=== PATIENT | male | born 1960 | race Caucasian/White ===

== ENCOUNTER 2018-05-17 11:58 | Inpatient (IN) | payer OTHER ==
[2018-05-17] MEDS ORDERED: SODIUM CHLORIDE 0.9% 1,000 ML IV STA (12:48)
[2018-05-17] MEDS ORDERED: METOCLOPRAMIDE 5 MG/ML 2 ML VIAL IVP STA (12:48)
[2018-05-17] MEDS ORDERED: diphenhydrAMINE 50 MG/ML 1 ML VIAL IVP STA (12:49)
--- NOTE | 2018-05-17 12:54 | ED ---
General Adult HPI - General Chief complaint: Headache Stated complaint: Headache Time Seen by Provider: 05/17/18 12:20 Source: patient, family, RN notes reviewed Mode of arrival: ambulatory Limitations: no limitations - History of Present Illness Initial comments: Patient is a pleasant 57-year-old male presenting to the emergency Department with chief complaint of headache. Onset of symptoms was around 3 AM. Patient woke with moderate discomfort. Patient agrees that this was not an abrupt onset. Symptoms have been waxing and waning at that time. Discomfort is moderate at this time. Discomfort is mostly in the frontal region. Patient does have associated nausea. No vomiting. No confusion. Patient does have associated tingling of both of his arms and both of his legs. No weakness. Patient does not commonly get headaches. Patient did take a Xanax without much relief. Patient has not slept much since onset. Patient states he usually does take an extra once per week. - Related Data Home Medications Medication Instructions Recorded Confirmed ALPRAZolam [Xanax] 0.25 mg PO DAILY PRN 05/17/18 05/17/18 Amlodipine Unknown Dose 1 tab PO DAILY 05/17/18 05/17/18 Aspirin EC [Ecotrin Low Dose] 81 mg PO DAILY 05/17/18 05/17/18 Multivitamins, Thera [Multivitamin 1 tab PO DAILY 05/17/18 05/17/18 (formulary)] Zolpidem Tartrate [Ambien] 10 mg PO HS 05/17/18 05/17/18 Allergies Allergy/AdvReac Type Severity Reaction Status Date / Time acetaminophen AdvReac Unknown Verified 05/17/18 13:14 [From Tylenol-Codeine #3] codeine AdvReac Unknown Verified 05/17/18 13:14 [From Tylenol-Codeine #3] Review of Systems ROS Statement: Those systems with pertinent positive or pertinent negative responses have been documented in the HPI. ROS Other: All systems not noted in ROS Statement are negative. Constitutional: Denies: fever Eyes: Denies: eye pain, vision change ENT: Denies: ear pain Respiratory: Denies: cough Cardiovascular: Denies: chest pain Endocrine: Denies: fatigue Gastrointestinal: Denies: abdominal pain Genitourinary: Denies: dysuria Musculoskeletal: Denies: back pain Skin: Denies: rash Neurological: Reports: headache. Denies: weakness, confusion Past Medical History Past Medical History: Pneumonia History of Any Multi-Drug Resistant Organisms: None Reported Past Surgical History: Orthopedic Surgery Additional Past Surgical History / Comment(s): foot Past Psychological History: No Psychological Hx Reported Smoking Status: Never smoker Past Alcohol Use History: Occasional Past Drug Use History: None Reported General Exam Limitations: no limitations General appearance: alert, in no apparent distress Head exam: Present: atraumatic, normocephalic, other (No tenderness over the temporal arteries) Eye exam: Present: normal appearance, PERRL, EOMI. Absent: nystagmus ENT exam: Present: normal oropharynx Neck exam: Present: normal inspection Respiratory exam: Present: normal lung sounds bilaterally Cardiovascular Exam: Present: regular rate, normal rhythm GI/Abdominal exam: Present: soft. Absent: tenderness Extremities exam: Present: normal inspection Neurological exam: Present: alert, CN II-XII intact. Absent: motor sensory deficit Expanded Neurological exam: Present: protecting the airway Speech: Present: fluid speech Cranial nerves: EOM's Intact: Normal, Facial Sensation: Normal Cerebellar function: Finger to Nose: Normal Sensory exam: Upper Extremity Light Touch: Normal, Lower Extremity Light Touch: Normal Motor strength exam: RUE: 5, LUE: 5, RLE: 5, LLE: 5 Eye Response: (4) open spontaneously Motor Response: (6) obeys commands Verbal Response: (5) oriented Psychiatric exam: Present: normal affect, normal mood Skin exam: Present: normal color Course Vital Signs 05/17/18 05/17/18 05/17/18 12:09 14:03 17:01 Temperature 97.8 F Pulse Rate 84 74 64 Respiratory 18 18 16 Rate Blood Pressure 170/98 152/74 124/71 O2 Sat by Pulse 97 96 98 Oximetry EKG Findings - EKG Comments: EKG Findings:: Normal sinus rhythm at 65. AL 168. QRS 160. QT 442. QTC 459. Left axis. Right bundle-branch block. LVH criteria. No acute ST change. Medical Decision Making - Medical Decision Making Patient reevaluated. Headache has improved however not resolved. Patient is receptive to further medication. and family are updated on results. Case was discussed with neural interventional list, Dr. Burnett who does recommend admission and MRI/MRA of the brain. He feels he will likely be able to follow-up with the patient pending MRI results. Case was discussed in detail with Dr. Baptiste, who will admit for Dr. Caraballo - Lab Data Result diagrams: 05/17/18 12:25 05/17/18 12:25 Lab Results 05/17/18 05/17/18 05/17/18 Range/Units 12:25 12:25 12:25 WBC 6.3 (3.8-10.6) k/uL RBC 5.05 (4.30-5.90) m/uL Hgb 15.9 (13.0-17.5) gm/dL Hct 45.9 (39.0-53.0) % MCV 90.8 (80.0-100.0) fL MCH 31.4 (25.0-35.0) pg MCHC 34.6 (31.0-37.0) g/dL RDW 13.1 (11.5-15.5) % Plt Count 219 (150-450) k/uL Neutrophils % 60 % Lymphocytes % 30 % Monocytes % 6 % Eosinophils % 2 % Basophils % 1 % Neutrophils # 3.8 (1.3-7.7) k/uL Lymphocytes # 1.9 (1.0-4.8) k/uL Monocytes # 0.4 (0-1.0) k/uL Eosinophils # 0.1 (0-0.7) k/uL Basophils # 0.0 (0-0.2) k/uL ESR 2 (0-15) mm/hr PT 9.6 (9.0-12.0) sec INR 1.0 (<1.2) APTT 24.4 (22.0-30.0) sec Sodium 140 (137-145) mmol/L Potassium 4.8 (3.5-5.1) mmol/L Chloride 104 (98-107) mmol/L Carbon Dioxide 23 (22-30) mmol/L Anion Gap 13 mmol/L BUN 16 (9-20) mg/dL Creatinine 0.71 (0.66-1.25) mg/dL Est GFR (CKD-EPI)AfAm >90 (>60 ml/min/1.73 sqM) Est GFR (CKD-EPI)NonAf >90 (>60 ml/min/1.73 sqM) Glucose 102 H (74-99) mg/dL Calcium 9.6 (8.4-10.2) mg/dL Magnesium 2.3 (1.6-2.3) mg/dL Total Bilirubin 0.6 (0.2-1.3) mg/dL AST 69 H (17-59) U/L ALT 128 H (21-72) U/L Alkaline Phosphatase 94 (38-126) U/L Total Protein 7.1 (6.3-8.2) g/dL Albumin 4.6 (3.5-5.0) g/dL - Radiology Data Radiology results: report reviewed (Computed tomography scan of the brain shows no acute process. CT angios of the brain shows distal right internal carotid artery stenosis. Also suspected venous angioma or AVM right corpus callosum. With early pill of the vena tate) Disposition Clinical Impression: Headache, Carotid stenosis, AVM (arteriovenous malformation) Disposition: ADMITTED IP TO THIS [facility] Referrals: Preeti Kimbrough MD [Primary Care Provider] - 1-2 days Decision Time: 17:17
[2018-05-17 13:01] LABS: Basophils % (A) 1 %; Eosinophils # (A) 0.1 k/uL (0-0.7); Eosinophils % (A) 2 %; HCT 45.9 % (39.0-53.0); HGB 15.9 gm/dL (13.0-17.5); Lymphocytes # (A) 1.9 k/uL (1.0-4.8); Lymphocytes % (A) 30 %; MCH 31.4 pg (25.0-35.0); MCHC 34.6 g/dL (31.0-37.0); MCV 90.8 fL (80.0-100.0); Mean Platelet Volume 7.3; Monocytes # (A) 0.4 k/uL (0-1.0); Monocytes % (A) 6 %; Neutrophils # (A) 3.8 k/uL (1.3-7.7); Neutrophils % (A) 60 %; Platelet Count 219 k/uL (150-450); RBC 5.05 m/uL (4.30-5.90); RDW 13.1 % (11.5-15.5); WBC 6.3 k/uL (3.8-10.6)
[2018-05-17 13:10] LABS: Partial Thromboplastin Time 24.4 sec (22.0-30.0); Prothrombin Time 9.6 sec (9.0-12.0)
[2018-05-17 13:12] LABS: ALT 128 U/L (21-72); AST 69 U/L (17-59); Albumin 4.6 g/dL (3.5-5.0); Alkaline Phosphatase 94 U/L (38-126); Anion Gap 13 mmol/L; Blood Urea Nitrogen 16 mg/dL (9-20); Calcium 9.6 mg/dL (8.4-10.2); Carbon Dioxide 23 mmol/L (22-30); Chloride 104 mmol/L (98-107); Glucose 102 mg/dL (74-99); Magnesium 2.3 mg/dL (1.6-2.3); Potassium 4.8 mmol/L (3.5-5.1); Sodium 140 mmol/L (137-145); Total Bilirubin 0.6 mg/dL (0.2-1.3); Total Protein 7.1 g/dL (6.3-8.2)
--- NOTE | 2018-05-17 13:51 | CT ---
EXAMINATION TYPE: CT brain wo con DATE OF EXAM: 05/17/2018 COMPARISON: NONE INDICATION: ANN DLP: 1090.4 mGycm, Automated exposure control for dose reduction was used. CONTRAST: None CT of the brain is performed utilizing 3 mm thick sections through the posterior fossa and 3 mm thick sections through the remaining calvarium. Study is performed within 24 hours of arrival to the hosp ital. No abnormal hyperdensity is present to suggest an acute intracranial hemorrhage. No mass lesion is evident. No acute infarcts are evident. Ventricles and sulci are appropriate for the patient age. Mucosal thickening is through the right maxillary sinus. Large retention cyst is likely present. Smal ler retention cysts and mucosal thickenings within the left maxillary sinus. There is mucosal thicken ing within the frontal sinuses and ethmoid air cells. The sphenoid sinuses and mastoid air cells are clear. IMPRESSIONS: 1. No acute intracranial process. 2. Mucosal thickening within paranasal sinuses above.
[2018-05-17 14:43] LABS: Erythrocyte Sedimentation Rate 2 mm/hr (0-15)
--- NOTE | 2018-05-17 15:22 | CT ---
EXAMINATION TYPE: CT angio head DATE OF EXAM: 05/17/2018 HISTORY: ANN COMPARISON: NONE CT DLP: 404.3 mGycm. Automated Exposure Control for Dose Reduction was Utilized. TECHNIQUE: CTA scan of the neck is performed with IV Contrast, patient injected with 65 mL of Isovue 370, axial images are obtained, coronal and sagittal reformatted images are reviewed. Three-D recons tructed images are created on an independent workstation and reviewed. FINDINGS: Carotid/Vascular Structures: There is a three-vessel arch. The vertebral arteries are codominant. Com mon carotid arteries bifurcate into internal and external carotid arteries. Internal carotid arteries are very redundant near the skull base. There is a focal area of stenosis on reconstructed images at the distal right internal carotid artery. No significant stenosis at the carotid bifurcations is [place]: A1 and M1 segments appear normal. A2 segments appear normal. The anterior communica ting artery is not identified. Vertebral basilar system appears normal. Posterior communicating arter ies are not identified. Middle cerebral artery branches appear normal. There appears to be early visualization of the straight sinus and vein of [place]. An arterial venous m alformation is not excluded. A venous angioma potentially could be within the region of of the corpus callosum on the sagittal plane images. IMPRESSION: 1. Distal right internal carotid artery stenosis near the redundancy at the skull base. Carotid bifur cations appear normal. 2. Suspected venous angioma or arteriovenous malformation along the right corpus callosum with early fill of the vena [place]. Consider follow-up MRA [place] for correlation.
[2018-05-17] MEDS ORDERED: MORPHINE SULFATE 2 MG/ML SYRINGE IVP STA (17:12)
[2018-05-17] MEDS ORDERED: MORPHINE SULFATE 2 MG/ML SYRINGE IV PRN (17:20)
[2018-05-17] MEDS ORDERED: LORazepam 2 MG/ML INJ IV PRN (17:20)
[2018-05-17] MEDS ORDERED: NALOXONE 0.4 MG/ML 1 ML VIAL IV PRN (17:20)
[2018-05-17] MEDS ORDERED: ALPRAZolam 0.25 MG TAB PO PRN (17:42)
[2018-05-17] MEDS ORDERED: ASPIRIN 81 MG PO STA (17:43)
--- NOTE | 2018-05-17 17:52 | P.HPIM ---
History of Present Illness H&P Date: 05/17/18 Chief Complaint: Headache and nausea The patient is a 57-year-old male with a past medical history of essential hypertension and insomnia who presents to the ER via private vehicle with his with chief complaint of frontal headache described as severe as 7 out of 10 located in the frontal area that began at approximately 2 AM and woke him from sleep this morning, the patient also reports some numbness and tingling in all extremities, he denies any focal weakness slurred speech and confusion, chest pain or shortness of breath. The patient is followed by Dr. Chappell and he reports compliance with his antihypertensive regimen. The patient reports that he's had intermittent headaches randomly over the last couple months, denies any history of migraine headaches or seizure disorder. The patient denies any recent illnesses and reports that he is otherwise healthy. In the ER and on admission he had a conference of workup including a CT of the head that was consistent with mucosal thickening within the paranasal sinuses with a likely retention cyst. CT of the neck was consistent with distal right ICA stenosis and a suspected venous angioma or AVM along the right corpus callosum. His labs are remarkable for a mild transaminitis of 69/128 ast/alt respectively. He was noted to be hypertensive the blood pressure of 170/98, Dr. Sprague contacted neuro interventionalist, Dr. Burnett who recommended admission and follow-up MRI MRA of the brain Review of Systems All other 12 point review of systems negative except for HPI Past Medical History Past Medical History: Pneumonia History of Any Multi-Drug Resistant Organisms: None Reported Past Surgical History: Orthopedic Surgery Additional Past Surgical History / Comment(s): foot Past Psychological History: No Psychological Hx Reported Smoking Status: Never smoker Past Alcohol Use History: Occasional Past Drug Use History: None Reported Medications and Allergies Home Medications Medication Instructions Recorded Confirmed Type ALPRAZolam [Xanax] 0.25 mg PO DAILY PRN 05/17/18 05/17/18 History Amlodipine Unknown Dose 1 tab PO DAILY 05/17/18 05/17/18 History Aspirin EC [Ecotrin Low Dose] 81 mg PO DAILY 05/17/18 05/17/18 History Multivitamins, Thera [Multivitamin 1 tab PO DAILY 05/17/18 05/17/18 History (formulary)] Zolpidem Tartrate [Ambien] 10 mg PO HS 05/17/18 05/17/18 History Allergies Allergy/AdvReac Type Severity Reaction Status Date / Time acetaminophen AdvReac Unknown Verified 05/17/18 13:14 [From Tylenol-Codeine #3] codeine AdvReac Unknown Verified 05/17/18 13:14 [From Tylenol-Codeine #3] Physical Exam Vitals: Vital Signs Temp Pulse Resp BP Pulse Ox 05/17/18 17:01 64 16 124/71 98 05/17/18 14:03 74 18 152/74 96 05/17/18 12:09 97.8 F 84 18 170/98 97 Intake and Output 05/17/18 05/17/18 05/17/18 06:59 14:59 22:59 Other: Weight 95.254 kg Constitutional: No acute distress, conversant, pleasant Eyes: Anicteric sclerae, moist conjunctiva, no lid-lag, PERRLA ENMT: NC/AT,Oropharynx clear, no erythema, exudates Neck:Supple, FROM, no masses, or JVD, No carotid bruits; No thyromegaly Lungs: Clear to auscultation, Clear to percussion, Normal respiratory effort, no accessory muscle use Cardiovascular: Heart regular in rate and rhythm, No murmurs, gallops, or rubs no peripheral edema Abdominal: Soft Nontender, nom distended, no guarding, no rebound or rigidity, Normoactive bowel sounds No hepatomegaly, No splenomegaly, No palpable mass No abdominal wall hernia noted Skin: Normal temperature, tone, texture, turgor, No induration No subcutaneous nodules, No rash, lesions, No ulcers Extremities:No digital cyanosis No clubbing, Pedal pulses intact and symmetrical Radial pulses intact and symmetrical Normal gait and station, No calf tenderness Psychiatric: Alert and oriented to person, place and time, Appropriate affect Intact judgement Neuro: Muscles Strength 5/5 in all 4 extremities, Sensation to light touch grossly present throughout, Cranial nerves II-XII grossly intact. No focal sensory deficits Results CBC & Chem 7: 05/17/18 12:25 05/17/18 12:25 Labs: Abnormal Lab Results - Last 24 Hours (Table) 05/17/18 Range/Units 12:25 Glucose 102 H (74-99) mg/dL AST 69 H (17-59) U/L ALT 128 H (21-72) U/L Assessment and Plan (1) Hypertensive encephalopathy Current Visit: Yes Status: Acute Code(s): I67.4 - HYPERTENSIVE ENCEPHALOPATHY SNOMED Code(s): 86159371 (2) TIA (transient ischemic attack) Current Visit: Yes Status: Acute Code(s): G45.9 - TRANSIENT CEREBRAL ISCHEMIC ATTACK, UNSPECIFIED SNOMED Code(s): 352170119 (3) AVM (arteriovenous malformation) Current Visit: Yes Status: Acute Code(s): Q27.30 - ARTERIOVENOUS MALFORMATION, SITE UNSPECIFIED SNOMED Code(s): 955627366 (4) Carotid stenosis Current Visit: Yes Status: Acute Code(s): I65.29 - OCCLUSION AND STENOSIS OF UNSPECIFIED CAROTID ARTERY SNOMED Code(s): 38872838 (5) Headache Current Visit: Yes Status: Acute Code(s): R51 - HEADACHE SNOMED Code(s): 76252440 (6) Transaminitis Current Visit: Yes Status: Acute Code(s): R74.0 - NONSPEC ELEV OF LEVELS OF TRANSAMNS & LACTIC ACID DEHYDRGNSE SNOMED Code(s): 749177340 Plan: The patient is admitted anticipated greater than 2 midnight stay with headache likely due to hypertensive encephalopathy after presenting with elevated blood pressure and possible TIA, he started on antiplatelet therapy with aspirin and reinitiated on his home hypertensive regimen with Norvasc, will plan to get echocardiogram and neurology consultation with Dr. Renner, the patient was found to have a venous angioma versus AVM and right carotid artery stenosis. On -call neuro interventionalist Dr. Burnett recommending follow-up MRI/MRA of the head. We will order right upper quadrant ultrasound and hep panel for his mild transaminitis. We'll place the patient and SCDs for DVT prophylaxis and continue to monitor his clinical course.
[2018-05-17] MEDS ORDERED: ONDANSETRON 4 MG/2 ML VIAL IVP PRN (17:55)
[2018-05-17] MEDS: SODIUM CHLORIDE 0.9% 1,000 ML IV SCH (19:29)
[2018-05-17] MEDS: ZOLPIDEM 10 MG TAB PO SCH (23:17)
[2018-05-17 23:37] VITALS: BMI 69.5
[2018-05-18 06:53] LABS: Basophils % (A) 1 %; Eosinophils # (A) 0.1 k/uL (0-0.7); Eosinophils % (A) 2 %; HCT 42.9 % (39.0-53.0); HGB 14.6 gm/dL (13.0-17.5); Lymphocytes # (A) 2.2 k/uL (1.0-4.8); Lymphocytes % (A) 35 %; MCH 32.1 pg (25.0-35.0); MCHC 34.1 g/dL (31.0-37.0); MCV 94.1 fL (80.0-100.0); Mean Platelet Volume 6.9; Monocytes # (A) 0.3 k/uL (0-1.0); Monocytes % (A) 5 %; Neutrophils # (A) 3.4 k/uL (1.3-7.7); Neutrophils % (A) 55 %; Platelet Count 180 k/uL (150-450); RBC 4.56 m/uL (4.30-5.90); RDW 14.4 % (11.5-15.5); WBC 6.2 k/uL (3.8-10.6)
[2018-05-18 07:02] LABS: ALT 107 U/L (21-72); AST 46 U/L (17-59); Albumin 3.8 g/dL (3.5-5.0); Alkaline Phosphatase 64 U/L (38-126); Anion Gap 10 mmol/L; Blood Urea Nitrogen 16 mg/dL (9-20); Calcium 9.1 mg/dL (8.4-10.2); Carbon Dioxide 24 mmol/L (22-30); Chloride 105 mmol/L (98-107); Cholesterol 159 mg/dL (<200); Glucose 100 mg/dL (74-99); HDL Cholesterol 51 mg/dL (40-60); LDL Cholesterol,Calculated 92 mg/dL (0-99); Potassium 4.6 mmol/L (3.5-5.1); Sodium 139 mmol/L (137-145); Total Bilirubin 0.4 mg/dL (0.2-1.3); Triglycerides 79 mg/dL (<150)
[2018-05-18] MEDS: amLODIPine 10 MG TAB PO SCH (08:02)
[2018-05-18] MEDS: ASPIRIN 325 MG TAB PO SCH (08:02)
--- NOTE | 2018-05-18 08:26 | US ---
EXAMINATION TYPE: US abdomen limited DATE OF EXAM: 05/18/2018 COMPARISON: NONE CLINICAL HISTORY: Transaminitis. EXAM MEASUREMENTS: Liver Length: 17.4 cm Gallbladder Wall: 0.4 cm CBD: 0.6 cm Right Kidney: 12.1 x 5.4 x 6.8 cm Pancreas: not well visualized due to midline bowel gas Liver: limited to intercostal window, visualized portions difficult to penetrate. Measures upper foote its of normal. Gallbladder: There is a wall echo shadow seen which is believed to be the gallbladder, no lumen iden tified . The wall is thickened at 0.4 cm, probable stones with shadowing. Evidence for sonographic Navarro's sign: No CBD: wnl Right Kidney: upper pole hypoechoic area measures 1.5 x 1.3 x 1.5 cm, simple cyst. IMPRESSION: 1. Cholelithiasis and gallbladder wall. Correlate for acute cholecystitis. 2. Echogenic pancreas. The distal tail is not visualized due to bowel gas. 3. Renal cyst right kidney
--- NOTE | 2018-05-18 09:02 | P.CNNES ---
History of Present Illness Consult date: 05/18/18 Reason for Consult: Patient admitted for headaches and possible venous angioma. History of Present Illness: This patient is a 57-year-old right-handed white male who was brought into the emergency room at [facility] yesterday for evaluation of headache. 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 On Friday night at about 2 AM he awoke from sleep and noted that he was having bifrontal headache pain. Patient states he was just not feeling well and had to take some over-the- counter medication to see if this would help but the headache persisted. Patient follows with his primary care physician Dr. Leidy granados for treatment of essential hypertension. Patient did not check his blood pressure at the time but did notice that he was having a throbbing headache. The symptoms continued and his recommended he go to the emergency room. He was brought into the ER yesterday for further evaluation. He was seen in the ER by Dr. Sprague. The patient continued to have headache pain and he was sent for a computed tomography scan of the brain which was completed yesterday and revealed no acute intracranial process. There was mucosal thickening within the paranasal sinuses. No evidence of acute stroke or hemorrhage was noted. Patient also underwent a CTA angiogram of the head and neck. This was completed yesterday. The results of the angiogram revealed a right internal carotid artery stenosis near the skull base. There was also evidence suggesting possibility of a venous angioma or arteriovenous malformation involving the right corpus callosum. MRA of the [place] was recommended by radiology. Patient states he does suffer from occasional headaches but does not have severe intractable migraines or recurrent headaches in the past. 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 The patient states his headache pain on Friday night average 7/10 in intensity. Today his headache is much better and states that the headache severity is now down to 2/10 intensity. While in the emergency room yesterday Dr. Sprague did contact Dr. Burnett the neuro interventionalist at [facility]. Dr. Burnett reviewed his computed tomography scan results and recommended the patient be admitted and to have a MRI MRA of the brain done. This was also conveyed to Dr. Baptiste was the admitting physician last night. Patient was given some analgesics in the ER and seems to be doing very well this morning. He is resting comfortably and as stated his headache pain is now down to 2/10. He did have evidence of hypertensive urgency in the emergency room yesterday with a blood pressure noted to be 170/98 in the ER. Pressures are doing much better today. We have recommended to the patient to undergo MRI MRA of the brain today for further evaluation. He is agreeable and we will arrange for the testing to be done this morning. The patient's CT angiogram also revealed evidence of right carotid artery stenosis. We have recommended a vascular surgery consultation for further assessment. Overall the patient seems to be doing much better today in terms of his headache symptoms. We will give further recommendations depending on the results of his MRI and MRA. If there is definite finding of AVM we would recommend a neurosurgical consultation for further assessment and treatment. The patient is resting comfortably. He is being evaluated for right upper quadrant pain and ultrasound is been scheduled. He just completed echocardiogram of the heart and we will await those results. Overall the patient is resting comfortably and appears to be in no acute distress. Headache pain symptoms are much better this morning. Neurology is now been consulted for further evaluation and recommendations. Review of Systems Constitutional: Denies chills, Denies fever Eyes: denies blurred vision, denies pain Ears, nose, mouth and throat: Denies headache, Denies sore throat Cardiovascular: Denies chest pain, Denies shortness of breath Respiratory: Denies cough Gastrointestinal: Denies abdominal pain, Denies diarrhea, Denies nausea, Denies vomiting Musculoskeletal: Denies myalgias Integumentary: Denies pruritus, Denies rash Neurological: Reports headaches, Reports paresthesias, Denies numbness, Denies weakness Psychiatric: Denies anxiety, Denies depression Endocrine: Denies fatigue, Denies weight change Past Medical History Past Medical History: Pneumonia History of Any Multi-Drug Resistant Organisms: None Reported Past Surgical History: Orthopedic Surgery Additional Past Surgical History / Comment(s): foot Past Psychological History: No Psychological Hx Reported Smoking Status: Never smoker Past Alcohol Use History: Occasional Past Drug Use History: None Reported Medications and Allergies Home Medications Medication Instructions Recorded Confirmed Type ALPRAZolam [Xanax] 0.25 mg PO DAILY PRN 05/17/18 05/17/18 History Amlodipine Unknown Dose 1 tab PO DAILY 05/17/18 05/17/18 History Aspirin EC [Ecotrin Low Dose] 81 mg PO DAILY 05/17/18 05/17/18 History Multivitamins, Thera [Multivitamin 1 tab PO DAILY 05/17/18 05/17/18 History (formulary)] Zolpidem Tartrate [Ambien] 10 mg PO HS 05/17/18 05/17/18 History Allergies Allergy/AdvReac Type Severity Reaction Status Date / Time acetaminophen AdvReac Unknown Verified 05/17/18 13:14 [From Tylenol-Codeine #3] codeine AdvReac Unknown Verified 05/17/18 13:14 [From Tylenol-Codeine #3] Physical Examination - Vital Signs Vital Signs: Vital Signs Temp Pulse Pulse Resp BP BP Pulse Ox 05/18/18 08:00 64 05/18/18 07:55 97.6 F 64 16 118/80 98 05/18/18 04:00 97.6 F 63 16 130/80 93 L 05/18/18 00:00 72 14 05/17/18 23:19 96.9 F L 72 14 119/72 96 05/17/18 22:15 98.7 F 65 14 118/71 97 05/17/18 19:27 79 16 131/68 96 05/17/18 17:01 64 16 124/71 98 05/17/18 14:03 74 18 152/74 96 05/17/18 12:09 97.8 F 84 18 170/98 97 Intake and Output 05/17/18 05/18/18 05/18/18 22:59 06:59 14:59 Other: # Voids 2 Weight 220 kg 100.2 kg - Constitutional General appearance: average body habitus, cooperative - EENT EENT: PERRL, mucous membranes moist - Respiratory Respiratory: lungs clear, normal breath sounds - Cardiovascular Cardiovascular: regular rate, normal S1, normal S2 Extremities: no peripheral edema bilaterally - Gastrointestinal Gastrointestinal: normoactive bowel sounds - Integumentary Integumentary: normal - Neurologic Cranial nerve examination: PERRL, EOMI, VFF, V1/V2/V3 grossly intact, face symmetric, tongue midline, intact gag reflex, intact corneal reflex, normal palatal elevation Speech examination: intact Sensorimotor examination: intact Motor examination - right side: 4/5: biceps, triceps, wrist flexion, wrist extension, water pipe installer, hip flexors, knee extensors, dorsiflexion, toe extension (EHL) , plantarflexion Motor examination - left side: 4/5: biceps, triceps, wrist flexion, wrist extension, water pipe installer, hip flexors, knee extensors, dorsiflexion, toe extension (EHL) , plantarflexion Detailed sensory examination: intact Reflex and gait examination: intact Reflexes: 1+: ankle, bicep, knee, tricep - Musculoskeletal Musculoskeletal: no pain - Psychiatric Psychiatric: mood/affect appropriate, cooperative Results - Laboratory Findings CBC and BMP: 05/18/18 06:13 05/18/18 06:13 Abnormal Lab Findings: Abnormal Labs 05/17/18 05/18/18 12:25 06:13 Glucose 102 H 100 H AST 69 H ALT 128 H 107 H Total Protein 6.0 L Assessment and Plan (1) Headache Current Visit: Yes Status: Acute Code(s): R51 - HEADACHE SNOMED Code(s): 72105244 (2) Carotid stenosis Current Visit: Yes Status: Acute Code(s): I65.29 - OCCLUSION AND STENOSIS OF UNSPECIFIED CAROTID ARTERY SNOMED Code(s): 48969662 (3) Hypertensive encephalopathy Current Visit: Yes Status: Acute Code(s): I67.4 - HYPERTENSIVE ENCEPHALOPATHY SNOMED Code(s): 56078933 (4) AVM (arteriovenous malformation) Current Visit: Yes Status: Acute Code(s): Q27.30 - ARTERIOVENOUS MALFORMATION, SITE UNSPECIFIED SNOMED Code(s): 536519711 Plan: This patient is a 57-year-old male who was brought into the emergency room at [facility] on 05/17/2018 for evaluation of severe headache pain. Patient had an episode of severe headache that occurred on Friday night. He awoke from bed at about 2 AM and complained of bifrontal headache pain. His symptoms did not improve any was brought into the emergency room for further evaluation. He was found to have evidence of uncontrolled hypertension with elevated blood pressure reading of 170/98. This was treated in the ER and he was sent for computed tomography scan of the brain and CTA angiogram of the head and neck. Results of these scans are as noted above. CT of the brain was reported negative for any acute changes. CT angiogram revealed evidence of right carotid artery stenosis as well as possible venous angioma versus AVM. The neural interventionalists at [facility] was contacted Dr. Burnett who reviewed his CAT scan results and recommended the patient be admitted for a MRI MRA. We did review the results of the CT of the brain and CTA angiogram of the head and neck with the patient and went over the results. As noted this was discussed yesterday in the emergency room between Dr. Sprague and Dr. Burnett. There was no immediate intervention recommended for this patient and he was admitted to Hospital for further assessment. His neurological examination at this time is nonfocal. His headaches are under much better control this morning and the headache pain is rated 2/10. We will obtain an MRI MRA of the brain as well as a vascular surgery consultation. Depending on the results of the MRI MRA further recommendations will be given. Would recommend tight control of this patient's blood pressure. His neurological examination at this time remains nonfocal. We will continue close neurological follow-up with this patient during this admission. Time with Patient: Greater than 30
[2018-05-18 11:26] LABS: Hepatitis A Antibody IgM Non-Reactive (Non-Reactive); Hepatitis B Core IgM Non-Reactive (Non-Reactive)
[2018-05-18] MEDS: MULTIVITAMINS, THERA 1 EACH TAB PO SCH (11:31)
--- NOTE | 2018-05-18 11:49 | P.PN ---
Subjective Progress Note Date: 05/18/18 Principal diagnosis: Headaches Patient reported mild H/A this am. No other symptoms. Objective - Vital Signs Vital signs: Vital Signs Temp 97.6 F 05/18/18 07:55 Pulse 74 05/18/18 11:29 Resp 16 05/18/18 11:29 BP 129/72 05/18/18 11:29 Pulse Ox 93 L 05/18/18 11:29 Intake & Output 05/17/18 05/18/18 05/18/18 18:59 06:59 18:59 Intake Total 240 Output Total 0 Balance 240 Weight 220 kg 100.2 kg Intake: Oral 240 Output: Urine 0 Other: # Voids 2 - Exam Constitutional: No acute distress, conversant, pleasant Eyes:Anicteric sclerae, moist conjunctiva, no lid-lag, PERRLA, ENMT: Oropharynx clear, no erythema, exudates Neck: Supple, FROM, no masses, or JVD, No carotid bruits, No thyromegaly Lungs: Clear to auscultation, Clear to percussion, Normal respiratory effort, no accessory muscle use Cardiovascular: Heart regular in rate and rhythm, No murmurs, gallops, or rubs, No peripheral edema Abdominal: Soft, Nontender, no guarding, rebound or rigidity, Normoactive bowel sounds, No hepatomegaly, No splenomegaly, No palpable mass Skin: Normal temperature, tone, texture, turgor, no induration, No subcutaneous nodules, No rash, lesions, No ulcers Extremities: No digital cyanosis, No clubbing, Pedal pulses intact and symmetrical, Radial pulses intact and symmetrical, No calf tenderness Psychiatric: Alert and oriented to person, place and time, appropriate affect, intact judgement Neuro: Muscles Strength 5/5 in all 4 extremities, Sensation to light touch grossly present throughout, Cranial nerves II-XII grossly intact, no focal sensory deficits - Labs CBC & Chem 7: 05/18/18 06:13 05/18/18 06:13 Labs: Abnormal Lab Results - Last 24 Hours (Table) 05/17/18 05/18/18 Range/Units 12:25 06:13 Glucose 102 H 100 H (74-99) mg/dL AST 69 H (17-59) U/L ALT 128 H 107 H (21-72) U/L Total Protein 6.0 L (6.3-8.2) g/dL Assessment and Plan Plan: (1) AVM (arteriovenous malformation) with H/A Seen on CTA Patient evaluated by neuro On-call neuro interventionalist Dr. Burnett recommended follow-up MRI/MRA of the head. MRV and MRI brain, ordered. Consult vascular for input. (2) Distal right internal carotid stenosis Evaluation by vascular (3) Transaminitis RUQ U/S
--- NOTE | 2018-05-18 12:41 | ECHOF ---
Referral Reason:TIA/CAD MEASUREMENTS -------- HEIGHT: 177.8 cm WEIGHT: 99.8 kg BP: 130/80 RVIDd: 3.5 cm (< 3.3) IVSd: 1.3 cm (0.6 - 1.1) LVIDd: 4.7 cm (3.9 - 5.3) LVPWd: 1.3 cm (0.6 - 1.1) IVSs: 1.7 cm LVIDs: 3.3 cm LVPWs: 1.6 cm LA Diam: 3.9 cm (2.7 - 3.8) LAESV Index (A-L): 29.84 ml/m Ao Diam: 3.9 cm (2.0 - 3.7) AV Cusp: 2.4 cm (1.5 - 2.6) MV EXCURSION: 18.742 mm (> 18.000) MV EF SLOPE: 81 mm/s (70 - 150) EPSS: 0.7 cm MV E Hugh: 0.63 m/s MV DecT: 252 ms MV A Hugh: 0.57 m/s MV E/A Ratio: 1.11 RAP: 5.00 mmHg RVSP: 29.15 mmHg FINDINGS -------- Sinus rhythm. This was a technically good study. The left ventricular size is normal. There is mild concentric left ventricular hypertrophy. Overa ll left ventricular systolic function is normal with, an EF between 55 - 60 %. The right ventricle is mildly enlarged. LA is midly dilated 29-33ml/m2. The right atrium is normal in size. The aortic valve is trileaflet and appears structurally normal. The mitral valve is normal. Mild tricuspid regurgitation present. Right ventricular systolic pressure is normal at < 35 mmHg. Trace/mild (physiologic) pulmonic regurgitation. The aortic root size is normal. Normal inferior vena cava with normal inspiratory collapse consistent with estimated right atrial pre ssure of 5 mmHg. The inferior vena cava is mildly dilated. There is no pericardial effusion. CONCLUSIONS -------- 1. Sinus rhythm. 2. This was a technically good study. 3. The left ventricular size is normal. 4. There is mild concentric left ventricular hypertrophy. 5. Overall left ventricular systolic function is normal with, an EF between 55 - 60 %. 6. The right ventricle is mildly enlarged. 7. LA is midly dilated 29-33ml/m2. 8. The right atrium is normal in size. 9. The aortic valve is trileaflet and appears structurally normal. 10. The mitral valve is normal. 11. Mild tricuspid regurgitation present. 12. Right ventricular systolic pressure is normal at < 35 mmHg. 13. Trace/mild (physiologic) pulmonic regurgitation. 14. The aortic root size is normal. 15. Normal inferior vena cava with normal inspiratory collapse consistent with estimated right atrial pressure of 5 mmHg. 16. The inferior vena cava is mildly dilated. 17. There is no pericardial effusion. ACCOUNTANT ASSISTANT: Denisha Finley RDCS
--- NOTE | 2018-05-18 13:43 | MR ---
EXAMINATION TYPE: MR angio head wo con DATE OF EXAM: 05/18/2018 COMPARISON: CT angiogram of the brain 05/17/2018 HISTORY: Headache, AVM, carotid stenosis TECHNIQUE: Time of flight images focusing on the [place] were performed without contrast. Th ree-dimensional reconstructions performed on an alternate workstation. FINDINGS: There is a 3 to 4 mm aneurysm arising from the internal carotid artery on the right just di stal and lateral to the origin of the ophthalmic artery. Internal carotid arteries are patent. There is no evident dissection or embolus. Vertebral arteries are patent, right vertebral artery is dominan t. IMPRESSION: Internal carotid artery aneurysm on the right as described.
--- NOTE | 2018-05-18 13:53 | MR ---
EXAMINATION TYPE: MR brain wo/w con DATE OF EXAM: 05/18/2018 COMPARISON: CT brain and CT angiogram brain 05/17/2018 HISTORY: Headache, AVM, carotid stenosis TECHNIQUE: Multiplanar, multisequence images of the brain and brainstem is performed without and with IV contras t, utilizing 10 mL intravenous Gadavist . FINDINGS: Diffusion weighted images demonstrate no evidence of a recent infarct or other diffusion ab normality. There is no extra-axial fluid collection, scattered hyperintensities within the deep whit e matter present on inversion recovery and T2-weighted sequences, there are approximately 5-10 lesion s present. The ventricular system and cisternal spaces are normal in size and appearance. The brain volume is age appropriate. Midline structures demonstrate normal morphology. The craniocervical junction appears within normal limits. Post contrast images demonstrate similar appearance to CT wispy enhancement adjacent to the corpus callosum on the right suggesting venous angioma as previously described. The dural venous sinu ses appear patent. The visualized sinuses are remarkable for inflammatory change in the maxillary sin uses, ethmoid air cells, frontal sinus and the globes are intact. There is cystic signal present at t he petrous apex on the right, correlate for petrous apicitis, cholesterol granuloma. No evident carot id stenosis. IMPRESSION: Nonspecific hyperintensities within the white matter be due to migraine headaches, hypert ension, vasculitis, chronic small vessel ischemia, multiple sclerosis felt to be less likely. Finding s in the petrous apex as described. Sinus disease.
[2018-05-18] MEDS: SODIUM CHLORIDE 0.9% 1,000 ML IV SCH (16:47)
[2018-05-18] MEDS ORDERED: NAPROXEN 250 MG TAB PO STA (18:52)
--- NOTE | 2018-05-18 20:20 | CONS ---
CONSULTATION This patient is a 57-year-old pleasant male who was admitted to [facility] with a history of frontal headache which started on 05/18/2018. For that the patient was brought to the emergency room and had a stroke workup. He denies any history of slurred speech, or any motor deficit. Patient has a history of intermittent headaches for the last couple of months. There is no history of seizure disorder or migraine. The patient had a CT angiogram of the brain dated 05/17/2018 and there is a 3 to 4 mm aneurysm arising from the internal carotid artery on the right just distal and lateral to the origin of the ophthalmic artery. Common and internal proximal and external carotids are patent. There is no evidence of any dissection or embolus. The vertebral arteries are patent and right vertebral artery is dominant. PAST HISTORY: No history of coronary artery disease. No history of diabetes. Patient has history of hypertension, which is well controlled with medication. The patient was seen in his room. He was lying comfortably in bed. His neck was supple. No bruit appreciated. Chest was clear on auscultation. First and second sounds normal. Abdomen was soft, nontender. Vascular examination showed brachial, radial and femoral pulses were present. The patient had normal motor function, upper and lower extremities. IMPRESSION: 1. Frontal headache. 2. Right internal carotid artery aneurysm; 3 to 4 mm aneurysm arising from the internal carotid artery on the right just distal and lateral to the origin of the ophthalmic artery. The patient had an MRA and MRI, which will be reviewed. PLAN: I have discussed this case with Dr. Wharton. This patient has an aneurysm at the intracranial portion of the internal carotid artery. We will have an opinion from Dr. Renner and see if he is a candidate for an opinion from [facility] or [facility]. In the meantime, we will follow with you and we will have the report of MRI and MRA in the meantime. MMODL / IJN: [id number] /
--- NOTE | 2018-05-18 20:45 | P.PN ---
Subjective Progress Note Date: 05/18/18 This patient is a 57-year-old male who was seen in neurology consultation early this morning for evaluation of headache. Patient was able to complete his MRI and MRA of the brain today. His MRI of the brain results indicate nonspecific white matter changes. There was a cystic lesion in the peak tricks apex of the right petrous bone. There was no evidence of any acute stroke or hemorrhage. There was suggestion of a venous angioma in the right corpus callosum region. MRA of the [place] was also completed today. The results indicate presence of a 3-4 mm aneurysm arising from the internal carotid artery on the right side just distal and lateral to the origin of the ophthalmic artery. The internal carotid arteries are patent. There was no evidence of any hemorrhage or dissection. No evidence of any embolus. The results of the MRI and MRA were discussed today with the patient in detail. This aneurysm is likely more of the incidental finding for him. We are recommending however the patient should be followed up in the neurosurgery clinic to review the MRA results in detail with him. We discussed these test results today in detail with Dr. Wharton and Dr. Hester. They were updated on the results of the MRI and MRA. We are recommending the patient should be scheduled for a neurosurgical consultation at the time of discharge hopefully tomorrow. He should follow-up in the outpatient neurology clinic as well in 3-4 weeks. If the patient has any difficulty obtaining referral her consultation per neurosurgery may contact our office directly. The patient otherwise seems to be making good progress. His blood pressure is under better control today. Dr. Hester feels there is no evidence for any carotid artery stenosis based on the MRA results. The patient neurologically remains very much intact with no focal deficit. He rates his headache pain as 3/10 in intensity. This seems to be much better than his initial presentation. Blood pressure also is under good control today. We've explained the results of the MRI and MRA in detailed with the patient today. Once again he may contact our office to schedule follow-up in 3- 4 weeks. His overall prognosis at this time remains guarded. Objective - Vital Signs Vital signs: Vital Signs Temp 97.6 F 05/18/18 07:55 Pulse 87 05/18/18 16:00 Resp 16 05/18/18 16:00 BP 142/77 05/18/18 16:00 Pulse Ox 94 L 06/25/18 16:00 Intake & Output 05/18/18 05/18/18 05/19/18 06:59 18:59 06:59 Intake Total 920 Output Total 0 Balance 920 Weight 100.2 kg Intake: Oral 920 Output: Urine 0 Other: # Voids 2 1 - Exam Physical examination: PHYSICAL EXAMINATION: Patient is resting comfortably in bed. VITAL SIGNS: Blood pressure is [142/77]. Heart rate is [87]. Respiration is [67] . Temperature is [97.7]. HEENT: Head is atraumatic, neck is supple, there were no carotid bruits. CHEST: Lungs are clear to auscultation and percussion. CARDIAC: S1, S2 normal rate and rhythm. There is no murmur. ABDOMEN: Soft and nontender. Bowel sounds are present. EXTREMITIES: There is no pedal edema. Peripheral pulses are present. Neurological examination: Patient has a nonfocal neurological examination today on exam. - Labs CBC & Chem 7: 05/18/18 06:13 05/18/18 06:13 Labs: Abnormal Lab Results - Last 24 Hours (Table) 05/18/18 Range/Units 06:13 Glucose 100 H (74-99) mg/dL ALT 107 H (21-72) U/L Total Protein 6.0 L (6.3-8.2) g/dL Assessment and Plan (1) Headache Current Visit: Yes Status: Acute Code(s): R51 - HEADACHE SNOMED Code(s): 49928492 (2) Carotid stenosis Current Visit: Yes Status: Acute Code(s): I65.29 - OCCLUSION AND STENOSIS OF UNSPECIFIED CAROTID ARTERY SNOMED Code(s): 53947445 (3) Hypertensive encephalopathy Current Visit: Yes Status: Acute Code(s): I67.4 - HYPERTENSIVE ENCEPHALOPATHY SNOMED Code(s): 77179611 (4) AVM (arteriovenous malformation) Current Visit: Yes Status: Acute Code(s): Q27.30 - ARTERIOVENOUS MALFORMATION, SITE UNSPECIFIED SNOMED Code(s): 746197190 Plan: Patient underwent MRI MRA of the brain today. The results of both of these studies was discussed at length today with the patient. We are recommending the patient to follow-up as outpatient in the neurosurgery clinic at either [facility] or [facility] for neurosurgical consultation regarding MRA results which indicate a 3-4 millimeter aneurysm arising from the right internal carotid artery. The patient seems to be doing quite well today with no recurrent severe headache. Patient's blood pressure is under better control today. Case was discussed with Dr. Hester and Dr. Wharton and able make arrangements for this patient to follow-up in neurosurgery consultation at [facility] tomorrow. If the patient continues to remain stable tomorrow he may be considered for discharge home. He is to schedule follow-up in the outpatient neurology clinic in 3-4 weeks. His overall prognosis at this time remains guarded.
[2018-05-18] MEDS: ZOLPIDEM 10 MG TAB PO SCH (20:55)
[2018-05-19 06:01] VITALS: RESP 16
[2018-05-19 08:05] VITALS: TEMP 98.5
[2018-05-19] MEDS: ASPIRIN 325 MG TAB PO SCH (08:07)
[2018-05-19] MEDS: amLODIPine 10 MG TAB PO SCH (08:07)
[2018-05-19 11:30] VITALS: BP 139/88; PULSE 81
[2018-05-19] MEDS: MULTIVITAMINS, THERA 1 EACH TAB PO SCH (11:31)
--- NOTE | 2018-05-19 12:10 | P.DS ---
Providers Date of admission: 05/17/18 17:20 Expected date of discharge: 05/19/18 Attending physician: Paul Baptiste MD Consults: 05/17/18 17:21 Consult Physician Urgent Consulting Provider: Robert Renner Consult Reason/Comments: Headache, please review CTA results, possible AVM versus other, carotid ziyad Do you want consulting provider notified?: Yes 05/18/18 10:00 Consult Physician Urgent Consulting Provider: Willie Hester Consult Reason/Comments: Right carotid artery stenosis. Do you want consulting provider notified?: Yes Primary care physician: [facility] Course: 57-year-old male with a past medical history of essential hypertension and insomnia who presented to the ER via private vehicle with his with chief complaint of frontal headache described as severe as 7 out of 10 located in the frontal area that began at approximately 2 AM and woke him from sleep. Patient also reported some numbness and tingling in all extremities , he denied any focal weakness slurred speech and confusion, chest pain or shortness of breath. The patient is followed by Dr. Chappell and he reports compliance with his antihypertensive regimen. The patient reported that he's had intermittent headaches randomly over the last couple months, denies any history of migraine headaches or seizure disorder. The patient denied any recent illnesses and reports that he is otherwise healthy. In the ER and on admission he had an extensive workup including a CT of the head that was consistent with mucosal thickening within the paranasal sinuses with a likely retention cyst. CT of the neck was consistent with distal right ICA stenosis and a suspected venous angioma or AVM along the right corpus callosum. His labs are remarkable for a mild transaminitis of 69/128 ast/alt respectively. He was noted to be hypertensive the blood pressure of 170/98, Dr. Sprague contacted neuro interventionalist, Dr. Burnett who recommended admission and follow-up MRI MRA of the brain. In the hospitalization patient was worked up extensively, he had an MRI of the brain that showed nonspecific hyperintensities in the white matter. 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 For this patient was evaluated by vascular surgery as well as neurology service. The consensus was to have the patient follow-up with neurosurgery as soon as possible after discharge. An appointment was made with the neurosurgeon on Friday. Patient is agreeable to keep that appointment. Additional workup included echocardiogram and that showed ejection fraction was within normal limits. Patient will be shortly discharged in a stable condition. 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) 3-4mm right ICA aneurysm Accelerated hypertension, resolved Plan - Discharge Summary Discharge Rx Participant: Yes New Discharge Prescriptions: New traMADol HCl [Ultram] 50 mg PO Q4-6H PRN #25 tab PRN Reason: Pain Continue Zolpidem Tartrate [Ambien] 10 mg PO HS Multivitamins, Thera [Multivitamin (formulary)] 1 tab PO DAILY Aspirin EC [Ecotrin Low Dose] 81 mg PO DAILY ALPRAZolam [Xanax] 0.25 mg PO DAILY PRN PRN Reason: Anxiety amLODIPine BESYLATE/BENAZEPRIL [amLODIPine BESYLATE/BENAZEPRIL 10-20 mg] 1 cap PO DAILY Discharge Medication List ALPRAZolam [Xanax] 0.25 mg PO DAILY PRN 05/17/18 [History] Aspirin EC [Ecotrin Low Dose] 81 mg PO DAILY 05/17/18 [History] Multivitamins, Thera [Multivitamin (formulary)] 1 tab PO DAILY 05/17/18 [History ] Zolpidem Tartrate [Ambien] 10 mg PO HS 05/17/18 [History] amLODIPine BESYLATE/BENAZEPRIL [amLODIPine BESYLATE/BENAZEPRIL 10-20 mg] 1 cap PO DAILY 05/18/18 [History] traMADol HCl [Ultram] 50 mg PO Q4-6H PRN #25 tab 05/19/18 [Rx] Follow up Appointment(s)/Referral(s): Robert Renner MD [STAFF PHYSICIAN] - 1 Week (Office to call with follow up appointment.) Preeti Kimbrough MD [Primary Care Provider] - 05/26/18 12:15 pm Kartik Joel MD [REFERRING] - 05/25/18 12:30 pm (Neurosurgery consult- please arrive 30 minutes prior to appointment. [facility] [address] [facility] [address] [place] [id number]) Patient Instructions/Handouts: Carotid Artery Disease (DC), Acute Headache (DC)
== END 2018-05-19 14:05 | disposition home or self-care (01) | DRG 91 ==
LOC: EC 11:58 → 6SEL 17:20
PROVIDERS: ADMIT Family Medicine; ATTEND Family Medicine
DX: I67.1 Cerebral aneurysm, nonruptured (principal); Q28.2 Arteriovenous malformation of cerebral vessels; I16.0 Hypertensive urgency; Z56.3 Stressful work schedule; I10 Essential (primary) hypertension; I65.21 Occlusion and stenosis of right carotid artery; R74.0 Nonspecific elevation of levels of transaminase and lactic acid dehydrogenase [LDH]; J34.1 Cyst and mucocele of nose and nasal sinus; G47.00 Insomnia, unspecified; I45.10 Unspecified right bundle-branch block; Z88.6 Allergy status to analgesic agent; Z88.5 Allergy status to narcotic agent; Z87.01 Personal history of pneumonia (recurrent); Z79.82 Long term (current) use of aspirin; Z79.899 Other long term (current) drug therapy
CPT/HCPCS: 36415; 70450; 70496; 70544; 70553; 76705; 80053; 80061; 80074; 83735; 85025; 85610; 85652; 85730; 93005; 93306; 96361; 96374; 96375; 99285

== ENCOUNTER 2024-03-24 06:55 | Day surgery (SDC) | payer OTHER ==
[2024-03-22 16:01] VITALS: BMI 30.8
[~2024-03-24 06:55] MED LIST: LIDOCAINE 1% (10MG/ML) FOR IV START INTRADERMA PRN
[2024-03-24] MEDS: LACTATED RINGERS 1,000 ML IV SCH (07:20)
[2024-03-24 08:08] VITALS: TEMP 97.2
[2024-03-24] MEDS ORDERED: THROMBIN (BOVINE) 5,000 UNIT VIAL ONE (08:16)
[2024-03-24] MEDS ORDERED: PROPOFOL 10 MG/ML 20 ML VIAL IV ONE (08:16)
--- NOTE | 2024-03-24 08:38 | P.PCN ---
Date of Procedure: 03/24/24 Procedure(s) Performed: BRIEF HISTORY: Patient is a 63-year-old pleasant male scheduled for an elective colonoscopy as a part of screening for colon cancer. PROCEDURE PERFORMED: Colonoscopy. PREOPERATIVE DIAGNOSIS: Screening for colon cancer. IV sedation per Anesthesia. PROCEDURE: After informed consent was obtained, the patient, was brought into the endoscopy unit. IV sedation was administered by Anesthesia under continuous monitoring. Digital rectal examination was normal. Initially the Olympus CF-160 flexible video colonoscope was then inserted in the rectum, gradually advanced into the cecum without any difficulty. Careful examination was performed as the scope was gradually being withdrawn. Ileocecal valve and the appendiceal orifice were visualized and appeared normal. Prep was excellent. Mucosa of the cecum, ascending colon, transverse colon, descending colon, sigmoid colon, and rectum appeared normal. Retroflexion was performed in the rectum and no lesions were seen. The patient tolerated the procedure well. IMPRESSION: Normal-appearing colon from rectum to cecum with no colorectal neoplasia . RECOMMENDATIONS: Findings of this examination were discussed with the patient. he was advised to have a rpt colonoscopy in 10 years.
[2024-03-24 08:59] VITALS: BP 129/77; PULSE 55; RESP 14
== END 2024-03-24 09:21 | disposition home or self-care (01) ==
LOC: ORWHC2ENDO 06:55
PROVIDERS: ATTEND Internal Medicine Gastroenterology
DX: Z12.11 Encounter for screening for malignant neoplasm of colon (principal); I10 Essential (primary) hypertension; K21.9 Gastro-esophageal reflux disease without esophagitis; Z98.890 Other specified postprocedural states; Z88.5 Allergy status to narcotic agent; Z88.6 Allergy status to analgesic agent; Z79.899 Other long term (current) drug therapy
CPT/HCPCS: 45378; J2704